=== PATIENT | male | born 1990 | race Caucasian/White ===

== ENCOUNTER 2024-12-23 10:35 | Emergency (ER) | payer BC, SELFPAY ==
[2024-12-23 10:35] VITALS: BP 134/80; PULSE 75; RESP 14; TEMP 35.6; O2SAT 98; BMI 26.4
--- NOTE | 2024-12-23 11:12 | EDS_ITS ---
HPI <SAHIL Limon - Last Filed: 12/23/24 13:00> History of Present Illness Chief Complaint: Upper Extremity Injury Narrative Narrative: Patient presenting today with concerns for foreign body to his left forearm. Yesterday he was working with a piece of metal using a chisel and a piece of the chisel broke off and lodged in his left forearm. He reports that the size was about the size of a pencil tip. He went to urgent care this morning, they made a small incision and tried using a magnet to locate the foreign body, they were unsuccessful and sent him to the emergency department for evaluation. They did update his tetanus. He did not have an x-ray performed there. He is right- handed. He denies any pain or paresthesias to the area. [facility] <SAHIL Limon - Last Filed: 12/23/24 13:00> [facility] Medical History (Updated 12/23/24 @ 12:41 by SAHIL Deutsch) Laceration of left forearm Metal foreign body in left upper extremity Encounter for examination required by Department of Transportation (DOT) Home Medications ?Medication ?Instructions ?Recorded ?Last Taken ?Type azithromycin 250 mg tablet See Rx Instructions PO .COM PLEX #6 12/23/24 Unknown Rx tabs cephalexin 500 mg capsule 500 mg PO TID #15 caps 12/23 Unknown Rx Allergy/AdvReac Type Severity Reaction Status Date / Time No Known Allergies Allergy Verified 12/23/24 10:36 Social History Smoking Status: Never smoker ROS <SAHIL Limon - Last Filed: 12/23/24 13:00> ROS ED Constitutional Constitutional ED: Denies chills or fever(s) Cardiovascular Cardiovascular: Denies chest pain Musculoskeletal Musculoskeletal: Denies arthralgias or myalgias Integumentary Denies abscess, Abrasions or rash Neurologic Neurologic: Denies paresthesias EXAM <SAHIL Limon - Last Filed: 12/23/24 13:00> Physical Exam Const Vital Signs: 12/23/24 10:35 Temperature 96.1 F L Temperature Source Temporal Pulse Rate 75 Respiratory Rate 14 Blood Pressure 134/80 H Blood Pressure Mean 98 Pulse Ox 98 Oxygen Delivery Method Room Air Positive well nourished, well developed and no apparent distress General Appearance ED: well developed HEENT Reports normocephalic and head/scalp atraumatic Mouth ED: Yes moist mucous membranes normal Eyes PERRL and EOMs intact bilaterally Neck full ROM and supple Chest Wall inspection of chest normal Resp normal respiratory effort and clear to auscultation bilaterally Cardio regular rate and regular rhythm Back/Spine normal ROM and normal to inspection Extremity normal to inspection and full ROM Extremity Narrative: Left radial pulse 2+, good cap refill, sensation intact. Full range of motion to the left shoulder, elbow, wrist, and fingers of the left hand. Small 1 cm partial-thickness laceration to the left proximal dorsal forearm that was made by urgent care to locate the foreign body Neuro oriented x3, CN's II-XII intact bilaterally, moves all extremities, no focal motor deficits and no sensory deficits noted Sensorium / Orientation: awake and alert Psych mental status grossly normal and thought process normal Skin no wounds Skin Narrative: See extremity exam, no rashes or abscess formation [facility] <SAHIL Limon - Last Filed: 12/23/24 13:00> [facility] Narrative Medical decision making narrative: Patient presenting today with concerns for lateral foreign body to his left forearm after tripping wet metal with a chisel yesterday. He went to urgent care this morning, they made a small incision to try to locate the foreign body while using a magnet but was unsuccessful and he was sent here for evaluation. He reports using a magnet at home trying to detect it. He is otherwise neurovascularly intact. Tetanus is up-to-date. X-ray will be obtained to assess foreign body. This shows a metallic foreign body in the proximal left forearm. I was able to remove the foreign body, see procedure note. Will place him on a course of Keflex. 2 sutures were placed, recommended he have these removed in 1 week. Strict return instructions were discussed. Wound care instructions discussed and patient discharged home in stable condition. I have personally performed a face to face assessment of the patient and have reviewed the DAVID Note. I performed a substantive portion of the visit including all aspects of the following. My chisholm findings include: History is 34-year-old [id number] male no seen past medical history. Was hammering metal yesterday and got a piece in his proximal left forearm. Today went to urgent care they made an incision but were not able to find it to remove it. Reportedly his tetanus was updated at that time. Denies any other complaints. Exam is [well-appearing 34-year-old male. Vital signs stable afebrile. H EENT exam unremarkable. Mytrex membranes. Lungs clear. Heart regular rhythm. Abdomen soft. Moving all 4 extremities. Neurovascularly intact. Proximal left forearm on the dorsal side there is a amber incision. I do not currently feel any foreign body.] Medical Decision Making [x-ray will be obtained. Will try to remove the foreign body if we cannot we will just place him on antibiotics.] Other additions or changes: [None] <Dr. Laurent Babin MD - Last Filed: 12/23/24 11:55> [facility]DM Narrative Medical decision making narrative: Patient presenting today with concerns for lateral foreign body to his left forearm after tripping wet metal with a chisel yesterday. He went to urgent care this morning, they made a small incision to try to locate the foreign body while using a magnet but was unsuccessful and he was sent here for evaluation. He reports using a magnet at home trying to detect it. He is otherwise neurovascularly intact. Tetanus is up-to-date. X-ray will be obtained I have personally performed a face to face assessment of the patient and have reviewed the DAVID Note. I performed a substantive portion of the visit including all aspects of the following. My chisholm findings include: History is 34-year-old [id number] male no seen past medical history. Was hammering metal yesterday and got a piece in his proximal left forearm. Today went to urgent care they made an incision but were not able to find it to remove it. Reportedly his tetanus was updated at that time. Denies any other complaints. Exam is [well-appearing 34-year-old male. Vital signs stable afebrile. H EENT exam unremarkable. Mytrex membranes. Lungs clear. Heart regular rhythm. Abdomen soft. Moving all 4 extremities. Neurovascularly intact. Proximal left forearm on the dorsal side there is a amber incision. I do not currently feel any foreign body.] Medical Decision Making [x-ray will be obtained. Will try to remove the foreign body if we cannot we will just place him on antibiotics.] Other additions or changes: [None] Radiography Diagnostic Testing: Left forearm x-ray, 2 views, AP and lateral, no fracture. There is a metallic foreign body in the proximal left forearm. Interpreted both by myself and the radiologist. Procedures <SAHIL Limon - Last Filed: 12/23/24 13:00> Other Procedures Procedure(s): Left proximal forearm has a small incision made by urgent care, I did cleanse the area with chlorhexidine and anesthetized the area with 1% lidocaine with epinephrine. Using a blunt probe I was able to locate the foreign body through this incision, I then had to make a small 0.5 cm incision near the original incision and was able to remove the foreign body. Both incisions were sutured with 4-0 Ethilon in simple interrupted fashion, 2 sutures were placed. The wound was then bandaged with bacitracin ointment. Discharge Plan Triage Chief Complaint: Upper Extremity Injury ED Midlevel Provider: Lynette Mora ED Provider: Laurent Babin Dx/Rx/DC Orders Clinical Impression: Foreign body in left forearm Instructions: ED Foreign Body, Soft Tissue (Removed) Prescriptions: New cephalexin 500 mg capsule 500 mg PO TID Qty: 15 0RF No Action azithromycin 250 mg tablet See Rx Instructions PO .COMPLEX Qty: 6 0RF Rx Instructions: For 250 mg dose pack: take 500 mg today (day 1), then 250 mg for 4 days (days 2-5) PO Primary Care Provider: Care Physician,No Primary Referrals: Care Physician,No Primary [Primary Care Provider] - Activity Restrictions/Additional Instructions: Follow-up with PCP to have sutures removed in 7 days. Return for any signs of infection. Print Language: Setswana Disposition Disposition: Home, Self Care Discharge Date/Time: 12/23/24 12:37
--- NOTE | 2024-12-23 11:15 | RAD_ITS ---
PROCEDURE: FOREARM 2 VIEWS (RADFA), 12/23/2024 REASON FOR EXAM: FOREIGN BODY TECHNIQUE: AP and lateral views of the left forearm were obtained. COMPARISON: None FINDINGS: Fracture/dislocation: None visible. Joint space(s): Preserved. Soft tissues: Unremarkable. Foreign bodies: 4 x 6 mm triangular radiodense foreign body within the superficial soft tissues overlying the radial aspect of the proximal forearm. Bone mineralization: Unremarkable. RAD/Forearm 2 Views IMPRESSION: 4 x 6 mm foreign body within the superficial soft tissues overlying the radial aspect of the proximal forearm. Reading Location: [id number]
[2024-12-23] MEDS: Lidocaine 1% /Epi 1:100 (20ml) 20 ML Vial 10 ML INFILT (11:56)
[2024-12-23 12:34] VITALS: BP 134/80; PULSE 75; RESP 15; TEMP 35.6; O2SAT 98
== END 2024-12-23 12:37 | disposition home or self-care (01) ==
PROVIDERS: Emergency Provider Emergency Medicine; Visit Provider Emergency Medicine
DX: S50.852A Superficial foreign body of left forearm, initial encounter (principal); X58.XXXA Exposure to other specified factors, initial encounter
CPT/HCPCS: 73090; 99282

== ENCOUNTER → 2025-01-08 | Outpatient (CLI) | payer BC, SELFPAY ==
[2025-01-08 18:01] LABS: Absolute Lymphocyte Count 2.17 X10^3/uL (0.83-4.51); Absolute Neutrophil Count 3.4 X10^3/uL (2.0-7.7); Basophil# 0.02 X10^3/uL; Basophil% 0.3 % (0-1); Eosinophil# 0.11 X10^3/uL; Eosinophils% 1.8 % (0-5); Hematocrit 40.3 % (40-54); Hemoglobin 13.7 g/dL (13.0-16.5); Lymphocyte # 2.17 X10^3/ul (0.83-4.51); Lymphocyte % 35.3 % (19-41); Mean Corpuscular Volume 85.4 fL (80-94); Mean Platelet Vol. 11.2 fl (6.2-12.0); Monocyte# 0.48 X10^3/uL; Monocyte% 7.8 % (0-10); NRBC Flagged by Analyzer 0 % (0-5); Neutrophil # 3.35 X10^3/uL (2.7-7.7); Neutrophil % 54.5 % (47-70); Platelet Count 236 K/mm3 (150-450); RBC Distribution Width SD 40.3 fl (35.1-43.9); Red Blood Count 4.72 M/mm3 (4.6-6.2); White Blood Count 6.2 K/mm3 (4.4-11.0)
[2025-01-09 10:49] LABS: Syphilis Antibodies Reactive (Nonreactive)
[2025-01-10 08:09] LABS: Toxoplasma Gondii IgG > 400.0 IU/mL (0.0-7.1)
== END | disposition home or self-care (01) ==
LOC: MTLAB 16:21
PROVIDERS: Referring Provider Ophthalmology; Visit Provider Ophthalmology
DX: H30.002 Unspecified focal chorioretinal inflammation, left eye (principal); H35.81 Retinal edema
CPT/HCPCS: 36415; 82164; 85025; 86617; 86777; 86778; 86780

== ENCOUNTER → 2025-01-12 | Outpatient (CLI) | payer BC, SELFPAY ==
[2025-01-12 20:12] LABS: HIV Nonreactive (Nonreactive); Syphilis Antibodies Reactive (Nonreactive)
== END | disposition home or self-care (01) ==
LOC: MTLAB 16:56
DX: H30.92 Unspecified chorioretinal inflammation, left eye (principal)
CPT/HCPCS: 36415; 86695; 86696; 86703; 86780; 86787